=== PATIENT | female | born 1965 | race Caucasian/White ===

== ENCOUNTER 2023-06-13 01:06 | Emergency (ER) | payer OTHER, SELFPAY ==
--- NOTE | ~2023-06-13 | CT_ITS ---
EXAMINATION: CT ABDOMEN AND PELVIS WITHOUT CONTRAST CLINICAL INFORMATION: Pain. COMPARISON: None available. TECHNIQUE: Multidetector volumetric imaging was performed from the superior aspect of the liver through the pubic symphysis. Sagittal and coronal reformatted images were obtained on the technologist's workstation. This CT examination was performed using dose optimization techniques as appropriate, variously including the following: *Automated exposure control *Adjustment of mA and/or kV according to patient size (this includes techniques or standardized protocols for targeted exams where dose is matched to indication/reason for exam; i.e. extremities or head) *Use of iterative reconstruction technique DLP: 419 mGy-cm FINDINGS: LUNG BASES: The visualized lung bases are unremarkable. LIVER, GALLBLADDER, AND BILIARY TREE: There is a 2 cm hypodensity right lobe of the liver. There is no intrahepatic biliary ductal dilatation. The gallbladder is unremarkable with no evidence of radiopaque gallstones, gallbladder wall thickening, or obvious pericholecystic inflammatory changes. PANCREAS: Unremarkable. SPLEEN: Unremarkable. ADRENAL GLANDS: Unremarkable. KIDNEYS AND URETERS: The kidneys are normal in size, shape, and attenuation. There are scattered bilateral renal calculi measuring up to 5 mm. There is [id number]-[id number]-[id number] right hydronephrosis and hydroureter extending into the pelvis to the level of a 7.5 x 4 mm BLADDER: Unremarkable. GASTROINTESTINAL TRACT: There are diverticula of the transverse and sigmoid colon without diverticulitis. The appendix is normal in appearance. ABDOMINAL WALL: No significant hernia is appreciated. LYMPH NODES: Normal. VASCULAR: Unremarkable. PELVIC VISCERA: Unremarkable. OSSEOUS STRUCTURES: There is moderate lower lumbar facet degenerative change. CT/CT abdomen pelvis wo IV con IMPRESSION: 7.5 x 4 mm right ureterovesicular junction calculus with mild to moderate right hydroureter and hydronephrosis. Bilateral nonobstructing renal calculi. Diverticula of the transverse and sigmoid colon without diverticulitis. 2 cm hypodensity right lobe of the liver is not a simple cyst but possibly a hemangioma. Consider nonemergent ultrasound follow-up. Fleischner guidelines were followed.
[2023-06-13 01:11] VITALS: BP 147/95; PULSE 73; RESP 16; TEMP 36.2; O2SAT 99; BMI 22.6
--- NOTE | 2023-06-13 01:43 | ED.ABDPAIN ---
HPI - Abdominal Pain General Chief Complaint: Abdominal Pain Stated Complaint: abdominal pain, ?UTI Time Seen by Provider: 06/13/23 01:43 Source: patient Mode of arrival: ambulatory Limitations: no limitations History of Present Illness HPI narrative: Patient with History of kidney stones woke up from sleep with sudden onset of pain in the right lower abdomen radiating to the right flank with nausea pain is sharp feels better when she ambulates no urinary complaints no bowel complaints patient had history of kidney stone 10 years ago status post lithotripsy Related Data Previous Rx's Medication Instructions Recorded morphine 15 mg immediate release 15 mg PO Q8H PRN pain #15 tabs 06/13/23 tablet ondansetron 4 mg disintegrating 4 mg PO Q6-8H PRN nausea and 06/13/23 tablet vomiting #7 tabs tamsulosin 0.4 mg capsule (Flomax) 0.4 mg PO BEDTIME #10 caps 06/13/23 Allergies Allergy/AdvReac Type Severity Reaction Status Date / Time lorazepam Allergy Hives Verified 06/13/23 01:16 Penicillins Allergy Hives Verified 06/13/23 01:16 [facility] Social History Social History Advance Directives: No Advance Directives Information Provided: No Physical Exam ED Vital Signs: Vital Signs - 24 hr 06/13/23 01:11 06/13/23 02:15 06/13/23 04:16 Temperature 97.1 F Pulse Rate 73 60 58 Respiratory Rate 16 16 Blood Pressure 147/95 H 139/65 116/68 Pulse Oximetry 99 98 Oxygen Delivery Method Room Air Room Air BMI result Body Mass Index 22.6 Appearance: Alert. Oriented X3. Moderate distress Eyes: No pallor or icterus ENT: Pharynx normal. Oral Mucosa moist Neck: Normal inspection. Neck supple. CVS: Normal heart rate and rhythm. Pulses normal. Respiratory: No respiratory distress. Equal air entry bilateral, no wheezing/rales/rhonchi Abdomen: Soft deep tenderness right mid abdomen Bowel sounds are present, no mass palpable, R CVA tenderness Skin: Skin warm and dry. Normal skin color. Normal skin turgor. Neuro: Oriented X 3. Medical Decision Making Medical Decision Making MDM Narrative: Patient with right UVJ stone 7.5x4mm patient feeling much better at this time and likely stone passed in the bladder discharge patient home advised to follow up with urologist in a.m. Differential Diagnosis Differential Diagnoses: The differential diagnosis associated with the presentation includes Kidney stones/UTI/appendicitis Admission/Observation Consideration of admission/observation: Escalation of care including admission/observation considered Lab Data MDM Lab Attestation statement: I reviewed the patient's lab results. 06/13/23 01:41 06/13/23 01:41 Labs: Lab Results 06/13/23 06/13/23 Range/Units 01:41 03:15 WBC 7.2 (4.8-10.8) X10*3/uL RBC 4.32 (4.20-5.50) X10*6/uL Hgb 12.5 (12.0-16.0) g/dl Hct 37.5 (37.0-47.0) % MCV 86.8 (80.0-98.0) fL MCH 28.9 (27.0-33.0) pg MCHC 33.3 (31.0-35.0) g/dl RDW 13.0 (11.0-16.0) % Plt Count 226 (160-400) X10*3/uL MPV 9.1 L (9.4-12.3) fL Immature Gran % (Auto) 0.3 (0.0-0.4) % Neut % (Auto) 56.7 (45-73) % Lymph % (Auto) 31.6 (20-40) % Lynn % (Auto) 7.5 (2-11) % Eos % (Auto) 3.2 (0-4) % Baso % (Auto) 0.7 (0-2) % Lymph # (Auto) 2.3 (1.2-4.9) X10*3/uL Lynn # (Auto) 0.5 (0.1-1.2) X10*3/uL Eos # (Auto) 0.2 (0.0-0.4) X10*3/uL Baso # (Auto) 0.1 (0.0-0.2) X10*3/uL Abs Immat Gran (auto) 0.02 (0.00-0.03) X10*3/uL Absolute Neuts (auto) 4.1 (2.0-8.3) x10*3/uL Absolute Nucleated RBC 0.000 (0.0-0.012) X10*3/uL Nucleated RBC % (auto) 0.0 (0.0-0.2) /100WBC Sodium 142 (135-145) mmol/L Potassium 3.6 (3.3-5.1) mmol/L Chloride 108 (96-108) mmol/L Carbon Dioxide 28 (22-29) mmol/L Anion Gap 10 L (12-20) BUN 14 (9-16) mg/dL Creatinine 0.76 (0.5-1.4) mg/dL Estim Creat Clear Calc 73.6 Estimated GFR > 60 Random Glucose 113 (60-115) mg/dL Calcium 8.8 (8.4-10.2) mg/dL Total Bilirubin 0.4 (0.0-1.0) mg/dL AST 16 (5-31) U/L ALT 10 (0-31) U/L Alkaline Phosphatase 53 (39-117) U/L Total Protein 6.7 (6.5-8.0) g/dL Albumin 4.0 (3.5-5.0) g/dL Lipase 46 (8-78) U/L Urine Color Yellow Urine Appearance Cloudy Urine pH 7.0 (5.0-9.0) Ur Specific [place] 1.015 (1.005-1.025) Urine Protein Negative (Neg-Trace) mg/dL Urine Glucose (UA) Negative (Negative) mg/dL Urine Ketones Negative (Negative) mg/dL Urine Blood Trace H (Negative) Urine Nitrite Negative (Negative) Ur Leukocyte Esterase Trace H (Negative) Urine RBC 3-5 H (0-2) /HPF Urine WBC 0-5 (0-5) /HPF Ur Squamous Epith Cells 6-10 (0-2) /HPF Urine Bacteria None Seen (None Seen) Hyaline Casts 0-2 (0-2) /LPF Independent Interpretation I performed an independent interpretation of an: CT Scan Radiology Impression Discussion of test interpretation with radiology: I have reviewed the radiologist's reading. Radiologist Impression: CT/CT abdomen pelvis wo IV con IMPRESSION: 7.5 x 4 mm right ureterovesicular junction calculus with mild to moderate right hydroureter and hydronephrosis. Bilateral nonobstructing renal calculi. Diverticula of the transverse and sigmoid colon without diverticulitis. 2 cm hypodensity right lobe of the liver is not a simple cyst but possibly a hemangioma. Consider nonemergent ultrasound follow-up. Fleischner guidelines were followed. Medications Administered Discontinued Medications Generic Name Dose Route Start Last Admin Trade Name Freq PRN Reason Stop Dose Admin Sodium Chloride 1,000 mls @ 999 mls/hr 06/13/23 02:03 06/13/23 03:24 Ns IV 06/13/23 03:03 Infused .Q1H1M ONE Infusion Ketorolac Tromethamine 30 mg 06/13/23 02:03 06/13/23 02:09 Ketorolac Tromethamine 30 Mg/Ml Vial IVPUSH 06/13/23 02:04 30 mg ONCE ONE Administration Morphine Sulfate 4 mg 06/13/23 02:03 06/13/23 02:10 Morphine Sulfate 4 Mg/Ml Cartridge IVPUSH 06/13/23 02:04 4 mg ONCE ONE Administration Protocol Ondansetron HCl 4 mg 06/13/23 02:03 06/13/23 02:10 Ondansetron Hcl 4 Mg/2 Ml Vial IVPUSH 06/13/23 02:04 4 mg ONCE ONE Administration Oxycodone HCl 10 mg 06/13/23 03:40 06/13/23 03:46 Oxycodone Hcl Immed Release 5 Mg Tablet PO 06/13/23 03:41 10 mg ONCE ONE Administration Tamsulosin HCl 0.4 mg 06/13/23 03:29 06/13/23 03:47 Tamsulosin Hcl 0.4 Mg Capsule PO 06/13/23 03:30 0.4 mg ONCE ONE Administration Discharge Plan Discharge Clinical Impression: Calculus of distal right ureter Patient Disposition: Home, Self-Care Instructions: Ureteral Stones (ED) Additional Instructions: Drink plenty of fluids Pain medication and Flomax as prescribed See urologist for further management Prescriptions: New morphine 15 mg tablet 15 mg PO Q8H PRN (Reason: pain) Qty: 15 0RF Rx Instructions: Partial Fill upon patient request. tamsulosin [Flomax] 0.4 mg capsule 0.4 mg PO BEDTIME Qty: 10 0RF ondansetron 4 mg tablet,disintegrating 4 mg PO Q6-8H PRN (Reason: nausea and vomiting) Qty: 7 0RF Referrals: Blayne Prado MD [Physician] - 1 day
[2023-06-13 01:46] LABS: MANUAL DIFF FLAG NO
[2023-06-13 01:47] LABS: Basophils Absolute Auto 0.1 X10*3/uL (0.0-0.2); Basophils Percent Auto 0.7 % (0-2); Eosinophils Absolute Auto 0.2 X10*3/uL (0.0-0.4); Eosinophils Percent Auto 3.2 % (0-4); Hematocrit 37.5 % (37.0-47.0); Hemoglobin 12.5 g/dl (12.0-16.0); Imm Gran Abs Auto 0.02 X10*3/uL (0.00-0.03); Imm Gran Pct Auto 0.3 % (0.0-0.4); Lymphocytes Absolute Auto 2.3 X10*3/uL (1.2-4.9); Lymphocytes Percent Auto 31.6 % (20-40); Mean Corpuscular HGB Conc 33.3 g/dl (31.0-35.0); Mean Corpuscular Hemoglobin 28.9 pg (27.0-33.0); Mean Corpuscular Volume 86.8 fL (80.0-98.0); Mean Platelet Volume 9.1 fL (9.4-12.3); Monocytes Absolute Auto 0.5 X10*3/uL (0.1-1.2); Monocytes Percent Auto 7.5 % (2-11); Neutrophils Absolute Auto 4.1 x10*3/uL (2.0-8.3); Neutrophils Percent Auto 56.7 % (45-73); Platelet Count 226 X10*3/uL (160-400); Red Blood Count 4.32 X10*6/uL (4.20-5.50); White Blood Count 7.2 X10*3/uL (4.8-10.8)
[2023-06-13 02:00] LABS: Alanine Aminotransferase 10 U/L (0-31); Alkaline Phosphatase 53 U/L (39-117); Anion Gap 10 (12-20); Aspartate Amino Transferase 16 U/L (5-31); Bilirubin Total 0.4 mg/dL (0.0-1.0); Blood Urea Nitrogen 14 mg/dL (9-16); Calcium 8.8 mg/dL (8.4-10.2); Carbon Dioxide 28 mmol/L (22-29); Chloride 108 mmol/L (96-108); Creatinine Clr Calc Pharmacy 73.6; Estimated Glomerular Filt Rate > 60; Glucose Random 113 mg/dL (60-115); Lipase 46 U/L (8-78); Potassium 3.6 mmol/L (3.3-5.1); Sodium 142 mmol/L (135-145); Total Protein 6.7 g/dL (6.5-8.0)
[2023-06-13] MEDS: 0.9 % Sodium Chloride 1,000 ML 999 ML IV (02:09)
[2023-06-13] MEDS: Ketorolac Tromethamine 30 MG/ML VIAL IVPUSH (02:09)
[2023-06-13] MEDS: Morphine Sulfate 4 MG/ML CARTRIDGE IVPUSH (02:10)
[2023-06-13] MEDS: ondansetron HCL 4 MG/2 ML VIAL IVPUSH (02:10)
[2023-06-13 02:15] VITALS: BP 139/65; PULSE 60
--- OUTSIDE RECORDS SUMMARY | 2023-06-13 02:29 | XMS_ITS | Continuity of Care Document ---
Author Name Unknown Organization [facility] Address [address] [place] [id number]- Care Team Providers Care Roller Engraver Name Role Phone Nai Basurto MD Primary Care Phys ician Encounter [facility] Date(s): 06/26/22 - 01/03/[address] [address]- Attending Physician: Tammy Ho MD Admitting Physician: Tammy Ho MD Referring Physician: Tammy Ho MD Allergies, Adverse Reactions, Alerts Substance Reaction Severity Status penicillins hives Active Patient Care team information Care Team Personnel Name: Nai Basurto MD Position: Reference Physician Member Role: PCP Address: Address: [address] [place] [address] [place] [address]- Care Team Related Persons Name: LIZETTE ESQUEDA Address: home [address] [place] [address]
[2023-06-13 03:25] LABS: Appearance Urine Cloudy; Color Urine Yellow; Glucose Urine UA Negative (Negative); Leukocyte Esterase Urine Trace (Negative); Nitrite Urine Negative (Negative); Specific Gravity - Urine 1.015 (1.005-1.025); UMIC TRIGGER UACC YES; Urine Blood Trace (Negative); Urine Ketones Negative (Negative); Urine Protein Negative (Neg-Trace)
[2023-06-13 03:37] LABS: Bacteria Urine None Seen (None Seen); Hyaline Casts Urine 0-2 /LPF (0-2); WBC Urine 0-5 /HPF (0-5)
[2023-06-13] MEDS: oxyCODONE HCl Immed Release 5 MG TABLET 10 MG PO (03:46)
[2023-06-13] MEDS: Tamsulosin HCL 0.4 MG CAPSULE PO (03:47)
[2023-06-13 04:16] VITALS: BP 116/68; PULSE 58; RESP 16; O2SAT 98
== END 2023-06-13 04:29 | disposition home or self-care (01) ==
PROVIDERS: Emergency Provider Internal Medicine; PCP Internal Medicine
DX: N20.1 Calculus of ureter (principal); R10.31 Right lower quadrant pain; Z79.899 Other long term (current) drug therapy
CPT/HCPCS: 36415; 74176; 80053; 81001; 83690; 85025; 96361; 96374; 96375; 99284; 99285; J1885; J2270; J2405

== ENCOUNTER 2023-06-29 13:42 | Outpatient (AMB) | payer OTHER, SELFPAY ==
--- NOTE | 2023-06-29 13:55 | MHC.OFFVIS ---
Intake Intake Visit Reasons: ED Follow up/ Ureteral stone Intake Note: NEW Patient presents today to established treatment for Uretral Stone: Meds- None Allergies to Antibiotic- No Known Allergies Blood Thinner- None Civil Service Clerk Required: No Accompanied by: Self / Same As Patient Allergies lorazepam Allergy (Verified 06/29/23 14:32) Hives Penicillins Allergy (Verified 06/29/23 14:32) Hives HPI HPI Comments History of Present Illness Details Yolanda is a 58-year-old female who presents today to the office to establish as a new patient for an evaluation of ureteral stone. 06/29/2023-- She is a 58-year-old female who was seen in ER on . I did review the CAT scan results notable for a 7.5 mm stone in the right distal ureter with mild to moderate hydronephrosis as well as bilateral non obstructing kidney stones. Renal calucli measures upto 5 mm. Patient had history of kidney stone 10 years ago status post lithotripsy. She states that her right lower abdominal pain has been subsided at this time. I have discussed that she may have passed stone but will need fu imaging. I have discussed at length diet modification to decrease risk of forming more kidney stones. I have discussed low oxalate diet and specific foods to avoid including certain green leafy vegetables, chocalate, nuts, tea, beets, rubarb; low sodium, decreased use of animal protein and the importance of hydration drinking up to 2-2.5 liters of fluids and use of adding lemon to water to increase citrate in the diet. A pamphlet is also provided today. Plan: Diet sheet was provided to the patient. Renal bladder US was ordered. Ordered 24-hour urine collection test. Follow-up in 4-5 weeks. [facility] Medical History (Updated 06/29/23 @ 14:57 by Charity Archibald MD) Hx of renal calculi Surgical History (Updated 06/29/23 @ 14:31 by NAIMA Pena) History of ureteroscopy Hx of lithotripsy Family History (Updated 06/29/23 @ 14:31 by NAIMA Pena) Father No problems noted. Mother No problems noted. Social History (Updated 06/29/23 @ 14:32 by NAIMA Pena) Alcohol intake: current Alcohol intake frequency: does not drink Patient Tobacco Use Status: Never used Tobacco Review of Systems Const All systems reviewed & are unremarkable except as noted in HPI and below Reports no additional complaints Eyes Reports no additional complaints ENT Reports no additional complaints Card Denies dyspnea Resp Denies cough and Denies dyspnea GI Reports no additional complaints Reports no additional complaints Musc Reports no additional complaints Skin/Breast Denies rash and Denies unusual bruising Neuro Reports no additional complaints Psych Reports no additional complaints Endo Reports no additional complaints [place]/Lymph Reports no additional complaints Aller/Immun Reports no additional complaints Physical Exam Const General: cooperative, healthy appearing and no acute distress Orientation/consciousness: patient oriented x3 HEENT Head: Yes normal to inspection, Yes normocephalic and Yes atraumatic Eyes Conjunctivae: conjunctivae normal Neck Neck: Yes normal visual inspection and Yes trachea midline Chest Chest palpation & inspection: normal inspection of the chest Resp Effort & Inspection: normal respiratory effort Cardio Rate: regular rate GI Inspection: Yes normal to inspection Skin General skin exam: no rashes or lesions noted Neuro General: patient oriented x3 Extrem General: No edema Psych Appearance: grossly normal Results AMB Urinalysis, Automated UA Leukoctes 0 Kimberly/uL Last Edit by NAIMA Pena on 06/29/23 14:38 UA Nitrite Negative Last Edit by NAIMA Pena on 06/29/23 14:38 UA Urobilinogen 0.2 mg/dL Last Edit by NAIMA Pena on 06/29/23 14:38 UA Protein 0 mg/dL Last Edit by Ronny Person Nasrin on 06/29/23 14:38 UA pH 6.5 Last Edit by Ronny Person Nasrin on 06/29/23 14:38 UA Blood 0 Artem/uL Last Edit by NAIMA Pena on 06/29/23 14:38 UA Specific [place] 1.005 Last Edit by NAIMA Pena on 06/29/23 14:38 UA Ketone Negative Last Edit by NAIMA Pena on 06/29/23 14:38 UA Bilirubin 0 mg/dL Last Edit by Ronny Person [facility] on 06/29/23 14:38 UA Glucose 0 mg/dL Last Edit by NAIMA Pena on 06/29/23 14:38 Results Reviewed Results Reviewed: Laboratory Last Values Urine pH (Auto) 6.5 06/29/23 14:33 Specific [place] (Auto) 1.005 06/29/23 14:33 Urine Protein (Auto) 0 mg/dL 06/29/23 14:33 Glucose (UA)(Auto) 0 mg/dL 06/29/23 14:33 Urine Ketones (Auto) Negative 06/29/23 14:33 Urine Blood (Auto) 0 Artem/uL 06/29/23 14:33 Urine Nitrite (Auto) Negative 06/29/23 14:33 Urine Bilirubin (Auto) 0 mg/dL 06/29/23 14:33 Urine Urobilinogen (Auto) 0.2 mg/dL 06/29/23 14:33 Leukocyte Esterase (Auto) 0 Kimberly/uL 06/29/23 14:33 Date of Service: 06/13/23 EXAMINATION: CT ABDOMEN AND PELVIS WITHOUT CONTRAST CLINICAL INFORMATION: Pain. COMPARISON: None available. DLP: 419 mGy-cm FINDINGS: LUNG BASES: The visualized lung bases are unremarkable. LIVER, GALLBLADDER, AND BILIARY TREE: There is a 2 cm hypodensity right lobe of the liver. There is no intrahepatic biliary ductal dilatation. The gallbladder is unremarkable with no evidence of radiopaque gallstones, gallbladder wall thickening, or obvious pericholecystic inflammatory changes. PANCREAS: Unremarkable. SPLEEN: Unremarkable. ADRENAL GLANDS: Unremarkable. KIDNEYS AND URETERS: The kidneys are normal in size, shape, and attenuation. There are scattered bilateral renal calculi measuring up to 5 mm. There is [id number] right hydronephrosis and hydroureter extending into the pelvis to the level of a 7.5 x 4 mm BLADDER: Unremarkable. GASTROINTESTINAL TRACT: There are diverticula of the transverse and sigmoid colon without diverticulitis. The appendix is normal in appearance. ABDOMINAL WALL: No significant hernia is appreciated. LYMPH NODES: Normal. VASCULAR: Unremarkable. PELVIC VISCERA: Unremarkable. OSSEOUS STRUCTURES: There is moderate lower lumbar facet degenerative change. IMPRESSION: 7.5 x 4 mm right ureterovesicular junction calculus with mild to moderate right hydroureter and hydronephrosis. Bilateral nonobstructing renal calculi. Assessment & Plan Assessment & Plan (1) Hydronephrosis: Code(s): N13.30 - Unspecified hydronephrosis (2) Bilateral kidney stones: Code(s): N20.0 - Calculus of kidney (3) Right ureteral stone: Code(s): N20.1 - Calculus of ureter Plan Diet sheet was provided to the patient. Renal bladder US was ordered. Ordered 24-hour urine collection test. Follow-up in 4-5 weeks. Orders: Orders AMB Urinalysis Automated 06/29/23 Z13.9 - Encounter for screening, unspecified Calcium 06/29/23 N20.0 - Calculus of kidney Parathyroid Hormone Related Pr 06/29/23 N20.0 - Calculus of kidney US retroperitoneal comp 06/29/23 N13.30 - Unspecified hydronephrosis, N20.0 - Calculus of kidney, N20.1 - Calculus of ureter Patient Instructions: The patient had an opportunity to ask questions regarding treatment plan. All questions were answered. Imaging, Laboratory studies and physical exam results were discussed and reviewed in detail. No major barriers to understanding were identified. The patient expressed understanding and agreement with the above treatment plan. The patient is aware they should contact our office by phone for worsening of their current condition or the appearance of new symptoms. Compliance is encouraged with any medications and followup testing that is ordered. It is a privilege to be allowed the opportunity to participate in the urologic care of your patient. If you have any questions or concerns regarding treatment for the above conditions please do not hesitate to contact me. The office telephone contact is [phone]. This note is constructed in part using voice recognition software. While every effort has been made to ensure accuracy picking crew supervisor errors may have been included. Yours sincerely, Charity Archibald MD Coding Level of Care Code New Pt Level 4 (32458) Diagnoses Hydronephrosis N13.30 Bilateral kidney stones N20.0 Right ureteral stone N20.1
== END 2023-06-29 14:55 | disposition home or self-care (01) ==
PROVIDERS: PCP Internal Medicine; Visit Provider Urology
DX: N13.30 Unspecified hydronephrosis (principal); N20.0 Calculus of kidney; N20.1 Calculus of ureter
CPT/HCPCS: 99204

== ENCOUNTER → 2023-06-29 13:42 | Outpatient (BNVA) | payer OTHER, SELFPAY | PROVIDERS: PCP Internal Medicine; Visit Provider Urology | DX: N13.2 Hydronephrosis with renal and ureteral calculous obstruction (principal) | CPT/HCPCS: 81003 ==

== ENCOUNTER 2023-07-26 14:01 | Outpatient (REF) | payer OTHER, SELFPAY ==
--- NOTE | ~2023-07-26 | US_ITS ---
EXAMINATION: US RETROPERITONEAL COMPLETE (RENAL) CLINICAL INFORMATION: Unspecified hydronephrosis. COMPARISON: CT abdomen and pelvis 06/13/2023. Ultrasound kidneys 09/19/2016. Ultrasound kidneys and bladder 09/14/2015. TECHNIQUE: Real-time imaging of the kidneys and bladder. FINDINGS: RIGHT KIDNEY: 10.5 x 4.7 x 5.0 cm (SAG x AP x TRV). The kidney is normal in size, contour, and echogenicity. Renal cortical thickness is normal. No focal parenchymal lesions or hydronephrosis. 2 mm nonobstructing calculus in the upper right kidney. 3 mm nonobstructing calculus in the lower right kidney. LEFT KIDNEY: 11.8 x 5.4 x 5.2 cm (SAG x AP x TRV). The kidney is normal in size, contour, and echogenicity. Renal cortical thickness is normal. No focal parenchymal lesions or hydronephrosis. 4 mm nonobstructing calculus in the lower left kidney. 4 mm nonobstructing calculus in the mid left kidney. 3 mm nonobstructing calculus in the mid left kidney. BLADDER: Well distended and normal. Bilateral ureteral jets are demonstrated. Prevoid bladder volume is 392 mL. Postvoid bladder volume is 35.7 mL. US/US retroperitoneal comp IMPRESSION: Nonobstructing bilateral renal calculi appear similar to recent CT scan. Previously seen right hydronephrosis is resolved.
[2023-07-26 15:01] LABS: Calcium 9.1 mg/dL (8.4-10.2)
[2023-07-26 15:18] LABS: Parathyroid Hormone Intact 66.6 pg/mL (8.7-77.1)
== END 2023-07-26 14:02 | disposition home or self-care (01) ==
LOC: HO.US 14:01
PROVIDERS: PCP Internal Medicine; Visit Provider Urology
DX: N13.30 Unspecified hydronephrosis (principal); N20.0 Calculus of kidney; N20.1 Calculus of ureter
CPT/HCPCS: 36415; 76770; 82310; 83970

== ENCOUNTER 2023-08-02 09:48 | Outpatient (AMB) | payer BC, SELFPAY ==
--- NOTE | 2023-08-02 09:50 | MHC.OFFVIS ---
Intake Intake Visit Reasons: 5w/US/litholink/labs Intake Note: Presents today for a follow-up on US/LABS/LITHOLINK 24 URINE COLLECTION RESULTS: Meds- None Allergies to Antibiotic- Penicillins Blood Thinner- None Engraver Flatware Required: No Accompanied by: Self / Same As Patient Allergies lorazepam Allergy (Verified 06/29/23 14:32) Hives Penicillins Allergy (Verified 06/29/23 14:32) Hives Medication List - Last Reconciled 08/02/23 by Charity Archibald MD tamsulosin (Flomax) 0.4 mg PO DAILY HPI HPI Comments History of Present Illness Details Yolanda is a 58-year-old female who presents today to the office for FU. 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 08/02/23-- Yolanda is here to discuss 24 hr urine results. She is a 58-year-old female who was seen in ER on . CAT scan results notable for a 7.5 mm stone in the right distal ureter with mild to moderate hydronephrosis as well as bilateral non obstructing kidney stones. Renal calucli measures upto 5 mm. The patient has had a history of kidney stone 10 years ago status post lithotripsy. Discussed 24 hour urine results: Collected 07/14/23--Total volume 1.86 mL, Calcium 124 mg; Oxalate 18 mg, Sodium 68, Citrate 655 mg. Instructed on importance of fluid intake. Disc'd Parathyroid hormone level is 66, WNL Discussed US results --Renal US---onobstructing bilateral renal calculi appear similar to recent CT scan. Previously seen right hydronephrosis is resolved. Review of chart: LV--06/29/23 I have discussed at length diet modification to decrease risk of forming more kidney stones. I have discussed low oxalate diet and specific foods to avoid including certain green leafy vegetables, chocalate, nuts, tea, beets, rubarb; low sodium, decreased use of animal protein and the importance of hydration drinking up to 2-2.5 liters of fluids and use of adding lemon to water to increase citrate in the diet. A pamphlet is also provided today. Plan: Pt to Monitor Diet and fluid intake B/L renal stones 3 and 4 mm, FU in one year with renal US prior [facility] Medical History Hx of renal calculi Surgical History History of ureteroscopy Hx of lithotripsy Family History Father No problems noted. Mother No problems noted. Social History Alcohol intake: current Alcohol intake frequency: does not drink Patient Tobacco Use Status: Never used Tobacco Review of Systems Const All systems reviewed & are unremarkable except as noted in HPI and below Reports no additional complaints Eyes Reports no additional complaints ENT Reports no additional complaints Card Denies dyspnea Resp Denies cough and Denies dyspnea GI Reports no additional complaints Reports no additional complaints Musc Reports no additional complaints Skin/Breast Denies rash and Denies unusual bruising Neuro Reports no additional complaints Psych Reports no additional complaints Endo Reports no additional complaints Layton/Lymph Reports no additional complaints Aller/Immun Reports no additional complaints Results AMB Urinalysis, Automated UA Leukoctes 0 Kimberly/uL Last Edit by NAIMA Pena on 08/02/23 10:21 UA Nitrite Negative Last Edit by NAIMA Pena on 08/02/23 10:21 UA Urobilinogen 0.2 mg/dL Last Edit by NAIMA Pena on 08/02/23 10:21 UA Protein 0 mg/dL Last Edit by NAIMA Pena on 08/02/23 10:21 UA pH 6.0 Last Edit by NAIMA Pena on 08/02/23 10:21 UA Blood 0 Artem/uL Last Edit by NAIMA Pena on 08/02/23 10:21 UA Specific [place] 1.010 Last Edit by NAIMA Pena on 08/02/23 10:21 UA Ketone Negative Last Edit by NAIMA Pena on 08/02/23 10:21 UA Bilirubin 0 mg/dL Last Edit by NAIMA Pena on 08/02/23 10:21 UA Glucose 0 mg/dL Last Edit by NAIMA Pena on 08/02/23 10:21 Results Reviewed Results Reviewed: Date of Service: 07/26/23 EXAMINATION: US RETROPERITONEAL COMPLETE (RENAL) CLINICAL INFORMATION: Unspecified hydronephrosis. COMPARISON: CT abdomen and pelvis 06/13/2023. Ultrasound kidneys 09/19/2016. Ultrasound kidneys and bladder 09/14/2015. TECHNIQUE: Real-time imaging of the kidneys and bladder. FINDINGS: RIGHT KIDNEY: 10.5 x 4.7 x 5.0 cm (SAG x AP x TRV). The kidney is normal in size, contour, and echogenicity. Renal cortical thickness is normal. No focal parenchymal lesions or hydronephrosis. 2 mm nonobstructing calculus in the upper right kidney. 3 mm nonobstructing calculus in the lower right kidney. LEFT KIDNEY: 11.8 x 5.4 x 5.2 cm (SAG x AP x TRV). The kidney is normal in size, contour, and echogenicity. Renal cortical thickness is normal. No focal parenchymal lesions or hydronephrosis. 4 mm nonobstructing calculus in the lower left kidney. 4 mm nonobstructing calculus in the mid left kidney. 3 mm nonobstructing calculus in the mid left kidney. BLADDER: Well distended and normal. Bilateral ureteral jets are demonstrated. Prevoid bladder volume is 392 mL. Postvoid bladder volume is 35.7 mL. IMPRESSION: Nonobstructing bilateral renal calculi appear similar to recent CT scan. Previously seen right hydronephrosis is resolved. Assessment & Plan Assessment & Plan (1) Bilateral kidney stones: Code(s): N20.0 - Calculus of kidney Plan Pt to Monitor Diet and fluid intake B/L renal stones 3 and 4 mm, FU in one year with renal US prior Orders: Orders AMB Urinalysis Automated Today Z13.9 - Encounter for screening, unspecified US renal BI 10 Months N20.0 - Calculus of kidney Medications: New tamsulosin (Flomax) 0.4 mg PO DAILY 30 caps 0RF to help pass stones Patient Instructions: The patient had an opportunity to ask questions regarding treatment plan. All questions were answered. Imaging, Laboratory studies and physical exam results were discussed and reviewed in detail. No major barriers to understanding were identified. The patient expressed understanding and agreement with the above treatment plan. The patient is aware they should contact our office by phone for worsening of their current condition or the appearance of new symptoms. Compliance is encouraged with any medications and followup testing that is ordered. It is a privilege to be allowed the opportunity to participate in the urologic care of your patient. If you have any questions or concerns regarding treatment for the above conditions please do not hesitate to contact me. The office telephone contact is [phone]. This note is constructed in part using voice recognition software. While every effort has been made to ensure accuracy environmental designer errors may have been included. Yours sincerely, Charity Archibald MD Coding Level of Care Code Est Pt Level 4 (77778) Diagnoses Bilateral kidney stones N20.0
== END 2023-08-02 10:33 | disposition home or self-care (01) ==
PROVIDERS: PCP Internal Medicine; Visit Provider Urology
DX: Z13.9 Encounter for screening, unspecified (principal); N20.0 Calculus of kidney
CPT/HCPCS: 99214

== ENCOUNTER → 2023-08-02 09:48 | Outpatient (BNVA) | payer BC, SELFPAY | PROVIDERS: PCP Internal Medicine; Visit Provider Urology | DX: N20.0 Calculus of kidney (principal) | CPT/HCPCS: 81003 ==

== ENCOUNTER 2024-10-21 14:57 | Outpatient (REF) | payer BC, SELFPAY ==
--- NOTE | ~2024-10-21 | US_ITS ---
EXAMINATION: US KIDNEY BILATERAL HISTORY: N20.0 - Calculus of kidney TECHNIQUE: Real-time grayscale ultrasound imaging of the kidneys was performed and images were reviewed. COMPARISON: Comparison is made with the prior examination dated 07/26/2023. FINDINGS: Right kidney: The right kidney measures 11.2 x 4.0 x 4.9 cm. Renal parenchymal echotexture and thickness are normal. There is an 8 x 7 x 8 mm cyst in the interpolar region. Multiple nonobstructing calculi are noted measuring up to 3 mm in size. There is no hydronephrosis. Left Kidney: The left kidney measures 10.8 x 5.3 x 5.5 cm. Renal parenchymal echotexture and thickness are normal. There is a 5 mm cyst in the interpolar region demonstrating an associated calcification. There is a 4 mm nonobstructing calculus at the lower pole. There is no hydronephrosis. US/US renal BI IMPRESSION: Bilateral nephrolithiasis as described. Electronically signed by: Dandre Bonilla MD 10/22/2024 07:07 AM EDT
--- OUTSIDE RECORDS SUMMARY | 2024-10-21 18:40 | XMS_ITS ---
Author Organization [facility] Address [address] [place] [address] Care Team Providers Care Md Ophthalmologist Name Role Phone DEJAN Shoemaker, LANG Primary Care Pr ovider Unavailable Tammy Ho Unavailable [phone] Allergies Allergen (clinical drug ingredient) Drug/Non Drug Allergy documented on EMR Reaction Allergy Type Onset Date Status lorazepam Lorazepam Hives Drug Allergy Active Neosporin Unknown Drug Allergy Active Penicillin Hives Drug Allergy Active Results Component Value Reference Range Notes Urinalysis Reviewed date:09/18/2024 02:33:12 PM Interpretation: Performing Lab: Notes/Report: PH 7.0 PROTEIN Neg GLUCOSE Neg BLOOD Neg [id number] IGP No Culture 30 Plus Reviewed date:09/22/2024 01:09:01 PM Interpretation: Performing Lab:[facility] [place], [address], [address], [place], Phone - [phone], Director - [facility] Notes/Report: Clinical Information:Vaginal/Cervical, LMP: Men o 2014 [id number] Dates / Results....06/08/22 NIL, Neg HPV Other..............Post Menopausal No. of containers..01 ThinPrep Vial DIAGNOSIS: NEGATIVE FOR IN TRAEPITHELIAL LESION OR MALIGNANCY. Specimen adequacy: Satisfactory for evaluation. Endocervical and/or squamous metaplastic cells (endocervical component) are present. Clinician provided ICD10: Z0 1.419 Performed by: Cristy Carrasco ytotechnologist (ASCP) . . Note: The Pap smear is a screening test designed to aid in the detection of premalignant and malignant conditions of the uterine cervix. It is not a diagnostic procedure and should not be used as the sole means of detecting cervical cancer. Both false-positive and false-negative reports do occur. . Test Methodology: This liquid based ThinPrep(R) pap test was screened with the use of an image guided system. HPV Aptima Negative Negative This nucleic acid amplification test detects fourteen high-risk HPV types (16,18,31,33,35,39,45,51,52,56,58 ,59,66,68) without differentiation. HPV Genotype Reflex Criteria not met, HPV Genotype not performed. PDF Report Reviewed date:09/22/2024 01:08:46 PM Interpretation: Performing Lab:[facility] [place], [address], [address], [place], Phone - [phone], Director - [facility] Notes/Report: Clinical Information:Vaginal/Cervical, LMP: Men o 2014 [id number] Dates / Results....06/08/22 NIL, Neg HPV Other..............Post Menopausal No. 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+ Medications Medication SIG (Take, Route, Frequency, Duration) Notes Start Date End Date Status Vitamin K Active Vitamin D3 25 MCG (1000 UT) 1 tablet Orally Once a day Active Estradiol 10 MCG 1 _insert Vaginal THREE TIMES A WEEK for 90 days 09/18/2024 Active Probiotic Orally Active L-Theanine 200 MG as directed Orally Unkown Dose Active Ashwagandha Active Magnesium Active Social History Tobacco Use: Social History Observation Description Date Details (start date - stop date) Never Smoker NA - NA AUDIT-C (Standard) Question Answer Notes Did you have a drink containing alcohol in the p ast year? No Points 0 Interpretation Negative Tobacco Control (Standard) Question Answer Notes Tobacco use: Nonsmoker Vital Signs Temperature 97.5 degrees Fahrenheit 09/18/19 25 Blood pressure systolic 128 mm Hg 09/18/19 25 Blood pressure diastolic 78 mm Hg 025 Height 65 in 09/18/2024 Weight 145 lbs 09/18/2024 BMI 24.13 kg/m2 09/18/2024 Encounters Encounter Location Date Provider Diagnosis [address] [place] [address] 09/18/2024 Tammy Ho Encounter for gynecological examination (general) (routine) without abnormal findings Z01.419 ; Encounter for screening mammogram for malignant neoplasm of breast Z12.31 ; Other specified disorders of bone density and structure, multiple sites M85.89 ; Postmenopausal atrophic vaginitis N95.2 and Dense breasts, unspecified R92.30 Assessments Encounter Date Diagnosis (ICD Code) Assessment Notes Treatment Notes Treatment Clinical Notes Section Notes 09/18/2024 Encounter for gynecological examination (general) (routine) without abnormal findings (ICD-10 - Z01.419) PAP TEST WITH HPV TYPING WAS OBTAINED. 09/18/2024 Encounter for screening mammogram for malignant neoplasm of breast (ICD-10 - Z12.31) REGULAR MAMMOGRAMS AND SBE'S WERE RECOMMENDED. 09/18/2024 Other specified disorders of bone density and structure, multiple sites (ICD-10 - M85.89) DISCUSSED OSTEOPENIA AND ITS IMPACT ON HER HEALTH. ADEQUATE CALCIUM AND VIT D. WEIGHT BEARING EXERCISES. REPEAT BMD IN 2025. 09/18/2024 Postmenopausal atrophic vaginitis (ICD-10 - N95.2) DISCUSSED FINDINGS, DX AND TX OPTIONS. SAFETY OF ESTRADIOL TABS 10MCG WAS EMPHASIZED. PAT AGREED TO TRY. RX AND INSTRUCTIONS WERE GIVEN. USE LUBRICANTS WELL. 09/18/2024 Dense breasts, unspecified (ICD-10 - R92.30) DISCUSSED DENSE BREASTS ON MAMMOGRAM AND ITS IMPLICATIONS. 3D MAMMOGRAMS WERE RECOMMENDED. Plan Of Treatment Medication Medication Name Sig Start Date Stop Date Notes Estradiol 10 MCG 1 _insert Vaginal TH REE TIMES A WEEK for 90 days 09/18/2024 Treatment Notes Assessment Notes Encounter for gynecological examination (general) (routine) without abnormal findings PAP TEST WITH HPV TYPING WAS OBTAINED. Encounter for screening mamm ogram for malignant neoplasm of breast REGULAR MAMMOGRAMS AND SBE'S WERE RECOMMENDED. Other specified disorders of bone density and structure, multiple sites DISCUSSED OSTEOPENIA AND ITS IMPACT ON HER HEALTH. ADEQUATE CALCIUM AND VIT D. WEIGHT BEARING EXERCISES. REPEAT BMD IN 2025. Postmenopausal atrophic vaginitis DISCUSSED FINDINGS, DX AND TX OPTIONS. SAFETY OF ESTRADIOL TABS 10MCG WAS EMPHASIZED. PAT AGREED TO TRY. RX AND INSTRUCTIONS WERE GIVEN. USE LUBRICANTS WELL. Dense breasts, unspecified DISCUSSED DENSE BREASTS ON MAMMOGRAM AND ITS IMPLICATIONS. 3D MAMMOGRAMS WERE RECOMMENDED. Pending Test Test Name Order Date MAMMOGRAM, SCREENING 09/18/2024 MM Digital Mammo Screening 09/18/2024 Next Appt Details Follow Up: 1 Year, Reason: Provider Name:Tammy L Chana suárez, 09/23/2025 09:20:00 AM, [address], [address], [place], [address], Progress Notes * LAISHA ESQUEDADOB:1965 (59 yo F)Acc No.[id number]:09/18/2024 PROGRESS NOTES Patient:?LAISHA ESQUEDA Appointment Provider:?Tammy suárez M.D. :1965???Age:59 Y???Sex:Female D ate:09/18/2024 Address:[address] [place] [address] , , [id number] Pcp:LANG DEMARCO M.D. Subjective: * Chief Complaints: * ??? Annual AGRICULTURAL CROP FARM MANAGER PhysicalAnnua l AGRICULTURAL CROP FARM MANAGER Physical 60-85+ * HPI: ???New/Follow-up Patient Consult:? PAT ENTERED MENOPAUSE IN 2014.? SHE WAS GIVEN ESTRADIOL CREAM FOR ATROPHIC VAGINITIS LAST YEAR BUT DID NOT USE THE MEDICATION.? SHE WAS WORRIED ABOUT ESTROGEN.? SHE C/O DYSPAREUNIA. BREAST BIOPSY DONE IN 2014 SHOWED DUCTAL HYPERPLASIA WITHOUT ATYPIA. HER LAST MAMMOGRAM DONE IN SEPTEMBER 2023 SHOWED DENSE BREASTS AND WAS NORMAL.? HER LIFETIME BREAST CA RISK IS 12.4%. HER LAST PAP TEST IN 2021 WAS NEGATIVE AND HPV NEGATIVE. HER LAST BMD IN 2023 SHOWED THE LOWEST T-SCORE TO BE -1.7 AT THE FEMORAL NECK.? FRAX=16%/0.9%. SHE HAD COLOGUARD TESTING DONE IN 2016 AND 2020. ???Annual:? Patient presents for annual exam, ages 60-85, postmenopausal. ?General Health Maintenance:?Current breast complaints:?no breast pain, mass, discharge, or skin changes ?Urinary problems:?patient reports no urinary health problems or bowel health problems ?Calcium intake:?takes adequate calcium via diet and supplementation ?Significant AGRICULTURAL CROP FARM MANAGER problems:?no significant bean sprout laborer symptoms or problems * ROS:?general:?no?chest pain.?no?palpitations.?no?headache.?no?cough.?no?shortness of breath.?no?fever.?no?unexplained weight loss.?no?nausea/vomiting.?no?change in bowel movements.?no blood in stool.?no?genitourinary complaints.?no?skin complaints.? * Medical History:? * Carriage Dogger History:?/ Para?09/29.?Sexual activity?currently sexually active.?Last Pap Smear:?06/08/22 NIL, NEG HPV, 10/21/18 NIL, NEG HPV, 09/24/15 NEG HRHPV, 12/03/12, Endometrial Cells on pap.?Mammogram:?10/01/23 50-75% density, 06/29/22 50-75% density, 03/24/21 50-75% density, 02/04/2018 normal, 06/19/16 50-75% density, 03/2015 Right Breast Biopsy Hyperplasia without atypia, 03/29/15 Right Diagnostic 50-75% density, 09/22/14 Right Diagnostic with Right Breast Biopsy on 09/25/14, Screening 09/17/14 50-75% density, 02/18/13.?LMP and menses?Wendi 02/2015.? Control:?condoms.?Colonoscopy?2020 Cologuard Neg, 2016 Cologuard Neg.?Bone Density:?10/01/23 Osteopenia.? * OB History:?Total pregnancies?3.?Total living children?3.?NVD?3.?Full-term delivery?3.? * Surgical History:?Tonsillect shi Ureteroscopies & Removal of Stones D&C, Hyperplasia without Atypia Breast Biopsy, Ductal Hyperplasia without Aytipia 03/2015 * Hospitalization/Major Diagno stic Procedure:?3 Vaginal Deliveries See Surgical Hx * Family History:?Mother: nickolas cottrell, osteoporosis.?Father: .?Paternal Grand Mother: breast cancer.?Paternal aunt: breast cancer.? * Social History:?Tobacco Use:?Tobacco Control (Standard)?Tobacco use:?Nonsmoker ???Sexual History:?Sexual History?Had sex in the past 12 months (vaginal, oral, or anal)?: Yes.?Details of Sexual History?Are you sexually active??Yes ???Drugs/Alcohol:?Drugs?Have you used drugs other than those for medical reasons in the past 12 months??No ???Miscellaneous:?Children: yes, 3. ?Domestic violence: no. ?Exercise: yes, walking. ?Home smoke detector use: yes. ?Living with: spouse. ?Marital status: . ?Natural support system: yes. ?Occupation: Works full-time. ?Sexual abuse: no. ?Sexually active: yes, monogamous relationship. ?Verbal abuse: no. ???Drug/Alcohol:?AUDIT-C (Standard)?Did you have a drink containing alcohol in the past year??No ?Points?0 ?Interpretation?Negative * Medications:?TakingVitamin D 3 25 MCG (1000 UT) Tablet 1 tablet Orally Once a day Vitamin K Magnesium Ashwagandha L-Theanine 200 MG Capsule as directed Orally , Notes to Pharmacist: Unkown DoseProbiotic Capsule Orally Taking Vitamin D3 25 MCG (1000 UT) Tablet 1 tablet Orally Once a day Taking Vitamin K Taking Magnesium Taking Ashwagandha Taking L-Theanine 200 MG Capsule as directed Orally , Notes to Pharmacist: Unkown DoseTaking Probiotic Capsule Orally DiscontinuedYuvafem 10 MCG Tablet 1 tablet Vaginal THRICE A WEEK Estradiol 10 MCG Tablet 1 tablet Vaginal THRICE A WEEK Estradiol Vaginal Cream 0.01% Cream 1 Gram Vaginally Twice a Week Estrace 0.1 MG/GM Cream 1 GRAM Vaginal TWICE A WEEK Medication List reviewed and reconciled with the patientDiscontinued Yuvafem 10 MCG Tablet 1 tablet Vaginal THRICE A WEEK Discontinued Estradiol 10 MCG Tablet 1 tablet Vaginal THRICE A WEEK Discontinued Estradiol Vaginal Cream 0.01% Cream 1 Gram Vaginally Twice a Week Discontinued Estrace 0.1 MG/GM Cream 1 GRAM Vaginal TWICE A WEEK Medication List reviewed and reconciled with the patient * Allergies:?Lorazepam: Hives - AllergyNeosporin: AllergyPenicillin: Hives - Allergyno[Allergies Verified] Objective: * Vitals:?Ht: 65 in, Wt:145lbs , BMI:24.13Index, BP:128/78mm Hg, Temp:97.5F. * Examination: ???General Exam: ?CONSTITUTIONAL:?General Appearance:?alert, in no acute distress, normal, well nourished ?NECK/THYROID:?Inspection/Palpation:?normal ?Thyroid:?normal size and shape ?RESPIRATORY:?Auscultation: clear to auscultation bilaterally, Respiratory Effort: normal.?CARDIOVASCULAR:?Auscultation: regular rate and rhythm.?BREAST, Right:?Inspection/Palpation:?no discharge, no masses present, no nipple retraction, no skin changes, no skin dimpling, no tenderness, no lymphadenopathy, no axillary mass, no axillary tenderness ?BREAST, Left:?Inspection/Palpation:?no discharge, no masses present, no nipple retraction, no skin changes, no skin dimpling, no tenderness, no lymphadenopathy, no axillary mass, no axillary tenderness ?GASTROINTESTINAL:?Abdomen:?no masses, nontender, nondistended ?Liver and Spleen:?normal ?Hernias:?no hernias present, no inguinal adenopathy ?MUSCULOSKELETAL:?Inspection/Palpation:?no clubbing, cyanosis, or edema ?SKIN:?Skin:?normal ?NEURO/PSYCH:?Orientation:?time , place, person ?Mood/Affect:?normal?Genitourinary: ?EXTERNAL GENITALIA:?External Genitalia:?normal, no lesions ?VAGINA:?Vagina:?atrophic vaginal tissue, minimal moisture ?BLADDER:?Bladder:?no mass, nontender ?URETHRA:?Urethra:?no erythema or lesions present ?CERVIX:?Cervix:?no lesions, nontender ?UTERUS:?Uterus:?nontender, normal contour, normal mobility, normal size ?ADNEXA:?Adnexa:?no masses, no tenderness ?ANUS AND PERINEUM:?Anus/Perineum:?visually normal??? Assessment: * Assessment: 1.?Encounter for gynecologic al examination (general) (routine) without abnormal findings - Z01.419???2.?Encounter for screening mammogram for malignant neoplasm of breast - Z12.31???3.?Other specified disorders of bone density and structure, multiple sites - M85.89???4.?Postmenopausal atrophic vaginitis - N95.2???5.?Dense breasts, unspecified - R92.30??? Plan: * Treatment: ?LAB: Urinalysis (Collection Date & Time - 09/18/2024)* ? Value Reference Range ?PH 7.0 * ?PROTEIN Neg * ?GLUCOSE Neg * ?BLOOD Neg * DSTARLA Muñoz 09/18/2024 02:30:43 PM EST > Notes: PAP TEST WITH HPV TYPING WAS OBTAINED.??2.?Encounter for screening mammogram for malignant neoplasm of breast?Imaging: MM Digital Mammo Screening Notes: REGULAR MAMMOGRAMS AND SBE'S WERE RECOMMENDED.??3.?Other specified disorders of bone density and structure, multiple sites? Notes: DISCUSSED OSTEOPENIA AND ITS IMPACT ON HER HEALTH. ADEQUATE CALCIUM AND VIT D. WEIGHT BEARING EXERCISES. REPEAT BMD IN 2025.??4.?Postmenopausal atrophic vaginitis? Start Estradiol Insert, 10 MCG, 1 _insert, Vaginal, THREE TIMES A WEEK, 90 days, 36 Tablet, Refills3.?? Notes: DISCUSSED FINDINGS, DX AND TX OPTIONS. SAFETY OF ESTRADIOL TABS 10MCG WAS EMPHASIZED. PAT AGREED TO TRY. RX AND INSTRUCTIONS WERE GIVEN. USE LUBRICANTS WELL.??5.?Dense breasts, unspecified? Notes: DISCUSSED DENSE BREASTS ON MAMMOGRAM AND ITS IMPLICATIONS. 3D MAMMOGRAMS WERE RECOMMENDED.?? * Imaging:? * ?Imaging: MAMMOGRAM, SCR EENING * Procedure Codes:? * Preventive Medicine:? ??YOUR PREVENTIVE WELLNESS PLAN:?Osteoporosis prevention?Calcium, D, strength training.?Breast Cancer Screening (Mammogram):?annually.?Cervical Cancer Screening (Pap Smear):?q 3 years with HPV screen.?Colorectal Cancer Screening:?q 10 years.? * Follow Up:?1 Year * Images: Billing Information: * Visit Code:? 71269 Preventive Care Est Pt. Age 65 and over. * Procedure Codes:? * Sign off status: Completed true * Appointment Provider:?Tammy Ho M.D. Date:?09/18/2024 Generated for Tracy lozoya/Srinivas/Lynetteitting on:?10/21/2024 06:39 PM EDT History and Physical Notes * HPI (History of Present Illness) Category Sub-Category Detail Notes Category Not es New/Follow-up Patient Consult PAT ENTERED MENOPAUSE IN 2014. SHE WAS GIVEN ESTRADIOL CREAM FOR ATROPHIC VAGINITIS LAST YEAR BUT DID NOT USE THE MEDICATION. SHE WAS WORRIED ABOUT ESTROGEN. SHE C/O DYSPAREUNIA. BREAST BIOPSY DONE IN 2014 SHOWED DUCTAL HYPERPLASIA WITHOUT ATYPIA. HER LAST MAMMOGRAM DONE IN SEPTEMBER 2023 SHOWED DENSE BREASTS AND WAS NORMAL. HER LIFETIME BREAST CA RISK IS 12.4%. HER LAST PAP TEST IN 2021 WAS NEGATIVE AND HPV NEGATIVE. HER LAST BMD IN 2023 SHOWED THE LOWEST T-SCORE TO BE -1.7 AT THE FEMORAL NECK. FRAX=16%/0.9%. SHE HAD COLOGUARD TESTING DONE IN 2016 AND 2020. Annual General Health Maintenance: Current breast complaints:: no breast pain, mass, discharge, or skin changes Urinary problems:: patient r eports no urinary health problems or bowel health problems Calcium intake:: takes adequ ate calcium via diet and supplementation Significant AGRICULTURAL CROP FARM MANAGER problems:: n o significant bean sprout laborer symptoms or problems Examination Category Sub-Category Detail Notes Category Not es General Exam CONSTITUTIONAL: General Appearan ce:: alert, in no acute distress, normal, well nourished NECK/THYROID: Thyroid:: normal size and shape Inspection/Palpation:: normal RESPIRATORY: Auscultation: clear to auscultation bilaterally, Respiratory Effort: normal CARDIOVASCULAR: Auscultation: regula r rate and rhythm GASTROINTESTINAL: Hernias:: no hernias present, no inguinal adenopathy Liver and Spleen:: normal Abdomen:: no masses, nontender, nondiste nded MUSCULOSKELETAL: Inspection/Palpation:: no clubb ing, cyanosis, or edema SKIN: Skin:: normal NEURO/PSYCH: Mood/Affect:: normal Orientation:: time , place, person BREAST, Right: Inspection/Palpation :: no discharge, no masses present, no nipple retraction, no skin changes, no skin dimpling, no tenderness, no lymphadenopathy, no axillary mass, no axillary tenderness BREAST, Left: Inspection/Palpation :: no discharge, no masses present, no nipple retraction, no skin changes, no skin dimpling, no tenderness, no lymphadenopathy, no axillary mass, no axillary tenderness Genitourinary EXTERNAL GENITALIA: External Genitalia:: nor mal, no lesions VAGINA: Vagina:: atrophic vaginal tissue , minimal moisture BLADDER: Bladder:: no mass, nontender URETHRA: Urethra:: no erythema or lesions present CERVIX: Cervix:: no lesions, nontender UTERUS: Uterus:: nontender, normal conto ur, normal mobility, normal size ADNEXA: Adnexa:: no masses, no tendernes s ANUS AND PERINEUM: Anus/Perineum:: visually norm al
--- OUTSIDE RECORDS SUMMARY | 2024-10-21 18:40 | XMS_ITS | Patient Health Record ---
Author Organization Total [employer] [facility] Address [address] [place] [address] Care Team Providers Care Variety Lathe Operator Name Role Phone DEJAN Shoemaker, LANG Primary Care Pr ovider Unavailable Tammy Ho Unavailable [phone] Allergies Allergen (clinical drug ingredient) Drug/Non Drug Allergy documented on EMR Reaction Allergy Type Onset Date Status lorazepam Lorazepam Hives Drug Allergy Active Neosporin Unknown Drug Allergy Active Penicillin Hives Drug Allergy Active Results Component Value Reference Range Notes Urinalysis Reviewed date:09/18/2024 02:33:12 PM Interpretation: Performing Lab: Notes/Report: PH 7.0 PROTEIN Neg GLUCOSE Neg BLOOD Neg [id number] IGP No Culture 30 Plus Reviewed date:09/22/2024 01:09:01 PM Interpretation: Performing Lab:[facility], [address], [address], [place], Phone - [phone], Director - [facility] Notes/Report: Clinical Information:Vaginal/Cervical, LMP: Men o 2014 [id number] Dates / Results....06/08/22 NIL, Neg HPV Other..............Post [...] Report Reviewed date:09/22/2024 01:08:46 PM Interpretation: Performing Lab:[facility], [address], [address], [place], Phone - [phone], Director - [facility] Notes/Report: Clinical Information:Vaginal/Cervical, LMP: Men o 2014 [id number] Dates / Results....06/08/22 NIL, Neg HPV Other..............Post Menopausal No. of containers..01 ThinPrep Vial Reason For Referral No Information Medications Medication SIG (Take, Route, Frequency, Duration) Notes Start Date End Date Status Vitamin K Active Vitamin D3 25 MCG (1000 UT) 1 tablet Orally Once a day Active Estradiol 10 MCG 1 _insert Vaginal THREE TIMES A WEEK for 90 days 09/18/2024 Active Probiotic Orally Active L-Theanine 200 MG as directed Orally Unkown Dose Active Ashwagandha Active Yuvafem 10 MCG 1 tablet Vaginal Thr ee times a Week for 90 days 09/25/2024 Active Magnesium Active Social History Tobacco Use: Social History Observation Description Date Details (start date - stop date) Never Smoker NA - NA AUDIT-C (Standard) Question Answer Notes Did you have a drink containing alcohol in the p ast year? No Points 0 Interpretation Negative Tobacco Control (Standard) Question Answer Notes Tobacco use: Nonsmoker Problems Problem Type SNOMED Code ICD Code Onset Dates Problem Status W/U Status Risk Notes Problem Postmenopausal atrophic vaginitis (38254928) Postmenopausal atrophic vaginitis (N95.2) Active confirmed Problem Screening for malignant neoplasm of breast (307684348) Encounter for screening mammogram for malignant neoplasm of breast (Z12.31) Active confirmed Problem Excessive and frequent menstruation (077485661) Excessive or frequent menstruation (626.2) Active confirmed Diag Problem Abnormal vaginal bleeding (872760873) Other disorder of menstruation and other abnormal bleeding from female genital tract (626.8) Active confirmed Major Problem Gynecological examination normal (685887090821928) Routine gynecological examination (V72.31) Active confirmed Problem Surgical follow-up (716173452) Surgery follow-up examination (V67.0) Active confirmed Diag Vital Signs Temperature 97.5 degrees Fahrenheit 09/18/2024 Blood pressure diastolic 78 mm Hg 09/18/2024 Height 65 in 09/18/2024 Blood pressure systolic 128 mm Hg 09/18/2024 Weight 145 lbs 09/18/2024 BMI 24.13 kg/m2 09/18/2024 Encounters Encounter Location Date Provider Diagnosis [address] [address] 09/18/2024 Tammy Ho Encounter for gynecological examination (general) (routine) without abnormal findings Z01.419 ; Encounter for screening mammogram for malignant neoplasm of breast Z12.31 ; Other specified disorders of bone density and structure, multiple sites M85.89 ; Postmenopausal atrophic vaginitis N95.2 and Dense breasts, unspecified R92.30 [address] [address] 10/24/2023 Tammy Ho [address] [address] 09/25/2024 Tammy Ho Assessments Encounter Date Diagnosis (ICD Code) Assessment [...] 3D MAMMOGRAMS WERE RECOMMENDED. Plan Of Treatment Pending Test Test Name Order Date Pap IG, rfx HPV ASCU 09/02/2014 MAMMOGRAM, SCREENING 09/18/2024 MAMMOGRAM, SCREENING 06/12/2023 Urinalysis 10/21/2018 Urinalysis 05/10/2021 CORE BIOPSY BREAST 09/22/2014 THIN PREP,HPV,JOSE ALEJANDRO IF HPV+ (>29YR)(DIAG) 10/21/2018 BONE DENSITY 06/08/2022 BONE DENSITY 06/12/2023 MM Digital Mammo Screening 06/12/2023 MM Digital Mammo Screening 09/18/2024 MM Digital Mammo Screening 10/21/2018 MM Digital Mammo Screening 05/10/2021 MM Digital Mammo Screening 06/08/2022 MM Digital Mammo Screening 09/26/2016 Next Appt Details Provider Name:Tammy Macho suárez, 09/23/2025 09:20:00 AM, [address], [facility] [address], [place], [address], Insurance Providers Payer Name Payer Address Payer Phone Subscriber Number Group Number Insured Name Patient Relationship to Insured Coverage Start Date Coverage End Date [employer] [place] [address] [place] [address] [id number] LIZETTE ESQUEDA Spouse - patient is the spouse of the insured Medical (General) History Medical History History ICD Code Excessive and frequent menstruation with regular cycle N92.0 Other specified abnormal uterine and vag inal bleeding N93.8 Other specified disorders of breast N64. 89 Menopausal and female climacteric states N95.1 Calculus of kidney N20.0 Inconclusive mammogram R92.2 Postmenopausal atrophic vaginitis N95.2 Dense breasts, unspecified R92.30 Mammographic heterogeneous density, bila teral breasts R92.333 Other specified disorders of bone densit y and structure, multiple sites M85.89 Surgical History Surgery Date(Month/Year) Tonsillectomy Ureteroscopies & Removal of Stones D&C, Hyperplasia without Atypia Breast Biopsy, Ductal Hyperplasia withou t Aytipia 03/2015 Hospitalization History Reason Date(Month/Year) See Surgical Hx 3 Vaginal Deliveries
--- OUTSIDE RECORDS SUMMARY | 2024-10-21 18:40 | XMS_ITS ---
Author Organization Total [employer] [facility] Address [address] [place] [address] Care Team Providers Care Stock Counter Name Role Phone DEJAN Shoemaker, LANG Primary Care Pr Tammy Mariscal Unavailable [phone] REASON FOR VISIT REQUEST DIFFERENT RX Medications Medication SIG (Take, Route, Fr equency, Duration) Notes Start Date End Date Status Yuvafem 10 MCG 1 tablet Vaginal Thr ee times a Week for 90 days 09/25/2024 Active Encounters Encounter Location Date Provider Diagnosis [facility] [employer] [address] [address] 09/25/2024 Tammy Ho Plan Of Treatment Medication Medication Name Sig Start Date Stop Date Notes Yuvafem 10 MCG 1 tablet Vaginal Thr ee times a Week for 90 days 09/25/2024 Next Appt Details Provider Name:Tammy suárez, 09/23/2025 09:20:00 AM, [address] [place] [address], [address], [place], [address], Progress Notes * LAISHA ESQUEDADOB:1965 (59 yo F)Acc No.[id number]:09/25/2024 Patient:?LAISHA ESQUEDA :1965???Age:59 Y???Sex:Female Address:[address] [place] [address] , , [place], [address] * Refills? Start Yuvafem Tablet, 10 MCG, Vaginal, 36 Tablet, 1 tablet, Three times a Week, 90 days, Refills=3 * true * Date:? Generated for Tracy lozoya/Srinivas/Lynetteitting on:?10/21/2024 06:40 PM EDT
--- OUTSIDE RECORDS SUMMARY | 2024-10-21 18:40 | XMS_ITS ---
Author Organization [employer] [facility] Address [address] [place] [address] Care Team Providers Care Foxing Closer Name Role Phone DEJAN Shoemaker, LANG Primary Care Pr Tammy Mariscal Unavailable [phone] REASON FOR VISIT Annual ORGAN TUNER ELECTRONIC Physical Encounters Encounter Location Date Provider Diagnosis [facility] [employer] [address] [place] [address] 06/17/2024 Tammy Ho Plan Of Treatment Next Appt Details Provider Name:Tammy suárez, 09/23/2025 09:20:00 AM, [address] [place] [address], [facility] [address], [place], [address], Progress Notes * LAISHA ESQUEDADOB:1965 (59 yo F)Acc No.[id number]:06/17/2024 PROGRESS NOTES Patient:?LAISHA ESQUEDA Appointment Provider:?Tammy suárez M.D. :1965???Age:59 Y???Sex:Female D ate:06/17/2024 Address:[address] [place] [address] , [place], [place] Pcp:LANG DEMARCO M.D. Subjective: * Chief Complaints: * ???1. Annual ORGAN TUNER ELECTRONIC Physical. * Medical History:? Objective: * Vitals:? Assessment: Plan: * Treatment: * Images: Billing Information: * Visit Code:? * Procedure Codes:? * Electronic signature of Rina Ho MD on 10/21/2024 at 06:39 PM EDT Sign off status: Pending * Appointment Provider:?Tammy Ho M.D. Date:?06/17/2024 Generated for Tracy lozoya/Srinivas/Ivis on:?10/21/2024 06:39 PM EDT
== END 2024-10-21 14:58 | disposition home or self-care (01) ==
LOC: HO.US 14:57
PROVIDERS: Visit Provider Urology
DX: N20.0 Calculus of kidney (principal)
CPT/HCPCS: 76775

== ENCOUNTER → 2024-10-21 14:59 | Outpatient (BNV) | payer BC, SELFPAY | PROVIDERS: Visit Provider Radiology Diagnostic Radiology | DX: N20.0 Calculus of kidney (principal) | CPT/HCPCS: 76775 ==

== ENCOUNTER 2024-11-11 09:23 | Outpatient (AMB) | payer BC, SELFPAY ==
--- NOTE | 2024-11-11 09:30 | A.OFFVIS_ITS ---
Intake Visit Reasons: 1yr/US Intake Note: Presents today for a 1 year follow-up/US Meds- None Allergies to Antibiotic- Penicillins Blood Thinner- None Iron Carrier Required: No Accompanied by: Self / Same As Patient Allergies lorazepam Allergy (Verified 11/11/24 09:31) Hives Penicillins Allergy (Verified 11/11/24 09:31) Hives Medication List - Last Reconciled 11/11/24 by Charity Archibald MD ondansetron 8 mg PO Q6-8H 5 days oxycodone 5 mg PO Q8H PRN tamsulosin (Flomax) 0.4 mg PO DAILY HPI Comments Details: 11/11/24--Yolanda is a 58-year-old female who presents today to the office for FU. Yolanda is a 58-year-old female who presents today to the office for FU. 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 She is a 58-year-old female who was seen in ER on . CAT scan results notable for a 7.5 mm stone in the right distal ureter with mild to moderate hydronephrosis as well as bilateral non obstructing kidney stones. Renal calucli measures upto 5 mm. The patient has had a history of kidney stone 10 years ago status post lithotripsy. Discussed 24 hour urine results: Collected 07/14/23--Total volume 1.86 mL, Calcium 124 mg; Oxalate 18 mg, Sodium 68, Citrate 655 mg. Instructed on importance of fluid intake. Disc'd Parathyroid hormone level is 66, WNL Discussed US results --Renal US---onobstructing bilateral renal calculi appear similar to recent CT scan. Previously seen right hydronephrosis is resolved. LV--06/29/23 I have discussed at length diet modification to decrease risk of forming more kidney stones. I have discussed low oxalate diet and specific foods to avoid including certain green leafy vegetables, chocalate, nuts, tea, beets, rubarb; low sodium, decreased use of animal protein and the importance of hydration drinking up to 2-2.5 liters of fluids and use of adding lemon to water to increase citrate in the diet. A pamphlet is also provided today. Plan: Pt to Monitor Diet and fluid intake B/L renal stones 3 and 4 mm, FU in one year with renal US prior [facility] Medical History Hx of renal calculi Surgical History History of ureteroscopy Hx of lithotripsy Family History Father No problems noted. Mother No problems noted. Social History Alcohol intake: current Alcohol intake frequency: does not drink Patient Tobacco Use Status: Never used Tobacco Results AMB Urinalysis, Automated UA Leukoctes 0 Kimberly/uL Last Edit by Yoselin Enriquez on 11/11/24 10:39 UA Nitrite Negative Last Edit by Yoselin Enriquez on 11/11/24 10:39 UA Urobilinogen 0.2 mg/dL Last Edit by Yoselin Enriquez on 11/11/24 10:39 UA Protein 0 mg/dL Last Edit by Yoselin Enriquez on 11/11/24 10:39 UA pH 6.0 Last Edit by Yoselin Enriquez on 11/11/24 10:39 UA Blood 0 Artem/uL Last Edit by Yoselin Enriquez on 11/11/24 10:39 UA Specific [place] 1.005 Last Edit by Yoselin Enriquez on 11/11/24 10:39 UA Ketone Negative Last Edit by Yoselin Enriquez on 11/11/24 10:39 UA Bilirubin 0 mg/dL Last Edit by Yoselin Enriquez on 11/11/24 10:39 UA Glucose 0 mg/dL Last Edit by Yoselin Enriquez on 11/11/24 10:39 Assessment & Plan Assessment & Plan Orders: Orders AMB Urinalysis Automated Today Z13.9 - Encounter for screening, unspecified Medications: New oxycodone Partial Fill upon patient request. 5 mg PO Q8H PRN 3 tabs 0RF pain ondansetron 8 mg PO Q6-8H 10 tabs 0RF nausea 5 days Refilled tamsulosin (Flomax) 0.4 mg PO DAILY 21 caps 0RF to help pass stones Coding
--- OUTSIDE RECORDS SUMMARY | 2024-11-11 10:24 | XMS_ITS ---
Author Organization Total [employer] [facility] Address [address] [place] [address] Care Team Providers Care International Logistics Analyst Name Role Phone DEJAN Shoemaker, LANG Primary Care Pr Tammy Mariscal Unavailable [phone] REASON FOR VISIT REQUEST DIFFERENT RX Medications Medication SIG (Take, Route, Fr equency, Duration) Notes Start Date End Date Status Yuvafem 10 MCG 1 tablet Vaginal Thr ee times a Week for 90 days 09/25/2024 Active Encounters Encounter Location Date Provider Diagnosis [facility] [employer] [address] [address] 09/25/2024 Tammy Ho Plan Of Treatment Medication Medication Name Sig Start Date Stop Date Notes Yuvafem 10 MCG 1 tablet Vaginal Thr ee times a Week for 90 days 09/25/2024 Next Appt Details Provider Name:Tammy suárez, 09/23/2025 09:20:00 AM, [address] [place] [address], [address], [place], [address], Progress Notes * LAISHA ESQUEDADOB:1965 (59 yo F)Acc No.[id number]:09/25/2024 Patient:?LAISHA ESQUEDA :1965???Age:59 Y???Sex:Female Address:[address] [place] [address] , , [place], [address] * Refills? Start Yuvafem Tablet, 10 MCG, Vaginal, 36 Tablet, 1 tablet, Three times a Week, 90 days, Refills=3 * true * Date:? Generated for Tracy lozoya/Srinivas/Lynetteitting on:?11/11/2024 10:24 AM EDT
--- OUTSIDE RECORDS SUMMARY | 2024-11-11 10:24 | XMS_ITS ---
Author Organization [employer] [facility] Address [address] [place] [address] Care Team Providers Care Configuration Manager Name Role Phone DEJAN Shoemaker, LANG Primary Care Pr ovider Unavailable Tammy Ho Unavailable [phone] Allergies Allergen (clinical drug ingredient) Drug/Non Drug Allergy documented on EMR Reaction Allergy Type Onset Date Status lorazepam Lorazepam Hives Drug Allergy Active Neosporin Unknown Drug Allergy Active Penicillin Hives Drug Allergy Active Results Component Value Reference Range Notes Urinalysis Reviewed date:09/18/2024 02:33:12 PM Interpretation: Performing Lab: Notes/Report: PH 7.0 PROTEIN Neg GLUCOSE Neg BLOOD Neg [id number] IGP No Culture 30 Plus Reviewed date:09/22/2024 01:09:01 PM Interpretation: Performing Lab:[facility] [place], [address], [address], [place], Phone - [phone], Director - [facility] Notes/Report: Clinical Information:Vaginal/Cervical, LMP: Men o 2014 [id number] Dates / Results....06/08/22 NIL, Neg HPV Other..............Post [...] [address], [address], [place], Phone - [phone], Director - [facility] Notes/Report: Clinical Information:Vaginal/Cervical, LMP: Men o 2014 [id number] Dates / Results....06/08/22 NIL, Neg HPV Other..............Post Menopausal No. of containers..01 ThinPrep Vial REASON FOR VISIT Annual ADULT AND PEDIATRIC NEUROLOGIST Physical, Annual ADULT AND PEDIATRIC NEUROLOGIST Physical 60-85+ Medications Medication SIG (Take, Route, [...] 09/18/2024 Encounters Encounter Location Date Provider Diagnosis [address] [place] [address] 09/18/2024 Tammy Ho Encounter for gynecological examination [...] L Chana suárez, 09/23/2025 09:20:00 AM, [address], [address], [place], [address], Progress Notes * LAISHA ESQUEDADOB:1965 (59 yo F)Acc No.[id number]:09/18/2024 PROGRESS NOTES Patient:?LAISHA ESQUEDA Appointment Provider:?Tammy suárez M.D. :1965???Age:59 Y???Sex:Female D ate:09/18/2024 Address:[address] [place] [address] , , [facility] Pcp:LANG DEMARCO M.D. Subjective: * Chief Complaints: * ??? Annual ADULT AND PEDIATRIC NEUROLOGIST PhysicalAnnua l ADULT AND PEDIATRIC NEUROLOGIST Physical 60-85+ * HPI: ???New/Follow-up Patient Consult:? [...] adequate calcium via diet and supplementation ?Significant ADULT AND PEDIATRIC NEUROLOGIST problems:?no significant clinical documentation specialist symptoms or problems * ROS:?general:?no?chest pain.?no?palpitations.?no?headache.?no?cough.?no?shortness of breath.?no?fever.?no?unexplained weight loss.?no?nausea/vomiting.?no?change in bowel movements.?no blood in stool.?no?genitourinary complaints.?no?skin complaints.? * Medical History:? * Manager Student Services History:?/ Para?09/29.?Sexual activity?currently sexually active.?Last Pap Smear:?06/08/22 [...] * Images: Billing Information: * Visit Code:? [id number] Preventive Care Est Pt. Age 65 and over. * Procedure Codes:? * Sign off status: Completed true * Appointment Provider:?Tammy Ho M.D. Date:?09/18/2024 Generated for Tracy lozoya/Srinivas/Lynetteitting on:?11/11/2024 10:24 AM EDT History and Physical Notes * HPI [...] ate calcium via diet and supplementation Significant ADULT AND PEDIATRIC NEUROLOGIST problems:: n o significant clinical documentation specialist symptoms or problems Examination Category Sub-Category Detail [...]
--- OUTSIDE RECORDS SUMMARY | 2024-11-11 10:24 | XMS_ITS ---
Author Organization [employer] [facility] Address [address] [place] [address] Care Team Providers Care Cpc Name Role Phone DEJAN Shoemaker, LANG Primary Care Pr Tammy Mariscal Unavailable [phone] REASON FOR VISIT Annual FINISHING FRAME RUNNER Physical Encounters Encounter Location Date Provider Diagnosis [facility] [email or web address] [address] [place] [address] 06/17/2024 Tammy Ho Plan Of Treatment Next Appt Details Provider Name:Tammy suárez, 09/23/2025 09:20:00 AM, [address] [place] [address], [facility] [address], [place], [address], Progress Notes * LAISHA ESQUEDADOB:1965 (59 yo F)Acc No.[id number]:06/17/2024 PROGRESS NOTES Patient:?LAISHA ESQUEDA Appointment Provider:?Tammy suárez M.D. :1965???Age:59 Y???Sex:Female D ate:06/17/2024 Address:[address] [place] [address] , , [place], [place] Pcp:LANG DEMARCO M.D. Subjective: * Chief Complaints: * ???1. Annual FINISHING FRAME RUNNER Physical. * Medical History:? Objective: * Vitals:? Assessment: Plan: * Treatment: * Images: Billing Information: * Visit Code:? * Procedure Codes:? * Electronic signature of Rina Ho MD on 11/11/2024 at 10:23 AM EDT Sign off status: Pending * Appointment Provider:?Tammy Ho M.D. Date:?06/17/2024 Generated for Tracy lozoya/Srinivas/Ivis on:?11/11/2024 10:23 AM EDT
== END 2024-11-11 10:11 | disposition home or self-care (01) ==
PROVIDERS: Visit Provider Urology
DX: Z13.9 Encounter for screening, unspecified (principal)

== ENCOUNTER → 2024-11-11 09:23 | Outpatient (BNVA) | payer BC, SELFPAY | PROVIDERS: Visit Provider Urology | DX: N20.0 Calculus of kidney (principal) | CPT/HCPCS: 81003 ==